=== PATIENT | female | born 1960 | race Caucasian/White ===

== ENCOUNTER → 2019-11-13 17:02 | Outpatient (CLI) | payer OTHER, SELFPAY ==
--- NOTE | ~2019-11-13 | XR_ITS ---
EXAMINATION:[id number] DATE: 11/13/2019 17:20 INDICATION: Neck pain TECHNIQUE: Two views of the cervical spine are obtained. COMPARISON: 12/01/2018 FINDINGS: There are 2 mm of stable anterolisthesis of C3 on C4. There are changes of interval anterio r fusion from C5 through C7. The vertebral body heights are normal. There is moderate loss of interve rtebral disc space height at C4-5. The odontoid is intact. 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 Prevertebral soft tissues are normal. IMPRESSION: 1. Changes of interval anterior fusion from C5 through C7. 2. Moderate cervical spondylosis. Reviewed, dictated and finalized at location A.
== END ==
DX: M47.892 Other spondylosis, cervical region (principal); Z98.1 Arthrodesis status
CPT/HCPCS: 72040

== ENCOUNTER → 2020-03-03 15:13 | Outpatient (CLI) | payer OTHER, SELFPAY ==
--- NOTE | ~2020-03-03 | MM_ITS ---
EXAMINATION: MM screening [facility] BI w n[facility] HISTORY: Screening mammogram TECHNIQUE: Craniocaudal and mediolateral oblique 3-D tomosynthesis images were obtained and synthetic 2-D images were generated. CAD analysis was submitted and interpreted. COMPARISON: 12/01/2018, 09/04/2016, 08/13/2016 BREAST PARENCHYMAL COMPOSITION: There are scattered areas of fibroglandular density. FINDINGS: There is no evidence of suspicious mass, calcification, or architectural distortion to sugg est malignancy in either breast. There has been no suspicious interval change. IMPRESSION: 1. No mammographic evidence of malignancy. 2. Recommend routine screening mammography in one year. BI-RADS Category 1: Negative Reviewed, dictated and finalized at location A.
== END ==
PROVIDERS: Visit Provider Obstetrics & Gynecology
DX: Z12.31 Encounter for screening mammogram for malignant neoplasm of breast (principal)
CPT/HCPCS: 77063; 77067